=== PATIENT | female | born 1945 | race Caucasian/White ===

== ENCOUNTER → 2017-01-31 | Outpatient (REF) | payer MEDICARE ==
[2017-01-31 15:32] LABS: FOLATE 4.4 NG/ML; VITAMIN B12 LEVEL 362 PG/ML
== END ==
LOC: M LAB REF 12:22
PROVIDERS: ATTEND Nurse Practitioner Family
DX: R56.9 Unspecified convulsions (principal); R41.3 Other amnesia

== ENCOUNTER → 2017-03-31 | Outpatient (REF) | payer MEDICARE | LOC: M LAB REF 16:58 | PROVIDERS: ATTEND Nurse Practitioner Family | DX: N64.9 Disorder of breast, unspecified (principal); L03.818 Cellulitis of other sites ==

== ENCOUNTER 2018-03-24 06:29 | Emergency (ER) | payer MEDICARE ==
[2018-03-24] MEDS: NORCO, ANEXSIA 5/325MG TABLET (HYDROcodone/ACETAMINOPHEN) PO (07:49)
== END 2018-03-24 10:58 | disposition home or self-care (01) ==
LOC: M ED 06:29
DX: M17.12 Unilateral primary osteoarthritis, left knee (principal); M71.22 Synovial cyst of popliteal space [Baker], left knee; I10 Essential (primary) hypertension; R56.9 Unspecified convulsions; Z79.899 Other long term (current) drug therapy
CPT/HCPCS: 73564

== ENCOUNTER 2018-03-24 15:49 | Inpatient (IN) | payer MEDICARE ==
[2018-03-24] MEDS ORDERED: WARFARIN SOD 3 MG TAB PO (17:00)
[2018-03-24 17:33] LABS: HEMATOCRIT 42.5 % (36.0-47.0); HEMOGLOBIN 14.4 g/dl (12.0-15.5); MEAN CORPUSCULAR HEMOGLOBIN 28.6 pg (27.0-33.0); MEAN CORPUSCULAR HGB CONC 33.9 g/dl (32.0-36.5); MEAN CORPUSCULAR VOLUME 84.3 fl (80.0-96.0); PLATELET COUNT, AUTOMATED 274 10^3/uL (150-450); RED BLOOD COUNT 5.04 10^6/uL (4.00-5.40); WHITE BLOOD COUNT 13.8 10^3/uL (4.0-10.0)
[2018-03-24 18:30] LABS: ANION GAP 8 MEQ/L (8-16); BLOOD UREA NITROGEN 11 MG/DL (7-18); CALCIUM LEVEL 9.3 MG/DL (8.8-10.2); CARBON DIOXIDE LEVEL 28 MEQ/L (21-32); CHLORIDE LEVEL 103 MEQ/L (98-107); CREATININE FOR GFR 0.78 MG/DL (0.55-1.30); GLOMERULAR FILTRATION RATE > 60.0 (>39); GLUCOSE, FASTING 120 MG/DL (70-100); POTASSIUM SERUM 3.4 MEQ/L (3.5-5.1); SODIUM LEVEL 139 MEQ/L (136-145)
[2018-03-24 18:54] LABS: PHENYTOIN (DILANTIN) 14.1 UG/ML (10.0-20.0)
[2018-03-24] MEDS: PHENYTOIN ER 100 MG CAP PO (21:00)
[2018-03-24] MEDS: SIMVASTATIN 20 MG TAB PO (21:00)
[2018-03-24] MEDS: HEPARIN SOD (PORCINE) 5000 UNITS/ML VIAL SC (22:00)
[2018-03-25] MEDS: POTASSIUM CHLORIDE 10 MEQ SR TABLET PO ×2 (01:52→07:30)
[2018-03-25] MEDS: OLANZapine INTRAMUSCULAR 10 MG VIAL (S0166) IM (02:10)
[2018-03-25] MEDS: HEPARIN SOD (PORCINE) 5000 UNITS/ML VIAL SC ×3 (05:53→20:26)
[2018-03-25] MEDS: NORCO, ANEXSIA 5/325MG TABLET (HYDROcodone/ACETAMINOPHEN) PO (08:02)
[2018-03-25] MEDS: OCUVITE 1 TAB PO (11:15)
[2018-03-25] MEDS: PHENYTOIN ER 100 MG CAP PO ×2 (11:15→20:26)
[2018-03-25] MEDS: LISINOPRIL 40 MG TAB PO (11:15)
[2018-03-25] MEDS: CALCIUM/VITAMIN D 500 MG TAB PO (11:16)
[2018-03-25] MEDS: DONEPEZIL 5 MG TAB PO (11:16)
[2018-03-25] MEDS: hydroCHLOROthiazide 12.5 MG CAPSULE PO (11:16)
[2018-03-25] MEDS: VITAMIN D 1,000 INTERNATIONAL UNITS TABLET PO (11:16)
[2018-03-25] MEDS: ASPIRIN 81 MG ENTERIC TAB PO (11:18)
[2018-03-25] MEDS: traMADol 50 MG TAB PO (16:20)
[2018-03-25] MEDS: ACETAMINOPHEN 500 MG TAB PO (20:25)
[2018-03-25] MEDS: SIMVASTATIN 20 MG TAB PO (20:26)
[2018-03-26] MEDS: traMADol 50 MG TAB PO ×2 (05:01→13:02)
[2018-03-26] MEDS: HEPARIN SOD (PORCINE) 5000 UNITS/ML VIAL SC ×3 (05:02→20:26)
[2018-03-26 05:11] LABS: APPEARANCE, URINE CLOUDY (CLEAR); BACTERIA, URINE AUTO 1+ (NEGATIVE); BILIRUBIN, URINE AUTO NEGATIVE (NEGATIVE); BLOOD, URINE BLOOD NEGATIVE (NEGATIVE); COLOR, URINE AMBER (YELLOW); GLUCOSE, URINE (UA) AUTO NEGATIVE (NEGATIVE); KETONE, URINE AUTO NEGATIVE (NEGATIVE); LEUKOCYTE ESTERASE, URINE AUTO 3+ (NEGATIVE); MUCUS, URINE SMALL (NEGATIVE); NITRITE, URINE AUTO NEGATIVE (NEGATIVE); PROTEIN, URINE AUTO NEGATIVE (NEGATIVE); RBC, URINE AUTO 8 /HPF (0-3); SPECIFIC GRAVITY URINE AUTO 1.026 (1.002-1.035); SQUAMOUS EPITHELIAL CELL UR AU 11 /HPF (0-6); UROBILINOGEN, URINE AUTO 0.2 mg/dL (0.0-2.0); WBC, URINE AUTO 61 /HPF (0-3)
[2018-03-26 06:41] LABS: HEMATOCRIT 40.3 % (36.0-47.0); HEMOGLOBIN 13.2 g/dl (12.0-15.5); MEAN CORPUSCULAR HEMOGLOBIN 27.9 pg (27.0-33.0); MEAN CORPUSCULAR HGB CONC 32.8 g/dl (32.0-36.5); MEAN CORPUSCULAR VOLUME 85.2 fl (80.0-96.0); PLATELET COUNT, AUTOMATED 282 10^3/uL (150-450); RED BLOOD COUNT 4.73 10^6/uL (4.00-5.40); RED CELL DISTRIBUTION WIDTH 14.1 % (11.5-14.5); WHITE BLOOD COUNT 12.5 10^3/uL (4.0-10.0)
[2018-03-26 07:07] LABS: ANION GAP 7 MEQ/L (8-16); BLOOD UREA NITROGEN 15 MG/DL (7-18); CARBON DIOXIDE LEVEL 28 MEQ/L (21-32); CHLORIDE LEVEL 105 MEQ/L (98-107); CREATININE FOR GFR 0.72 MG/DL (0.55-1.30); GLOMERULAR FILTRATION RATE > 60.0 (>39); GLUCOSE, FASTING 125 MG/DL (70-100); SODIUM LEVEL 140 MEQ/L (136-145)
[2018-03-26] MEDS: PHENYTOIN ER 100 MG CAP PO ×2 (08:27→20:25)
[2018-03-26] MEDS: DONEPEZIL 5 MG TAB PO (08:27)
[2018-03-26] MEDS: hydroCHLOROthiazide 12.5 MG CAPSULE PO (08:27)
[2018-03-26] MEDS: CALCIUM/VITAMIN D 500 MG TAB PO (08:27)
[2018-03-26] MEDS: ASPIRIN 81 MG ENTERIC TAB PO (08:27)
[2018-03-26] MEDS: OCUVITE 1 TAB PO (08:27)
[2018-03-26] MEDS: VITAMIN D 1,000 INTERNATIONAL UNITS TABLET PO (08:27)
[2018-03-26] MEDS: ACETAMINOPHEN 500 MG TAB PO ×2 (08:28→20:25)
[2018-03-26] MEDS: LISINOPRIL 40 MG TAB PO (08:30)
[2018-03-26] MEDS: HALOPERIDOL 5 MG/ML VIAL (J1630) IV (13:40)
[2018-03-26] MEDS: QUEtiapine FUMARATE 12.5 MG HALF-TAB PO (20:25)
[2018-03-26] MEDS: SIMVASTATIN 20 MG TAB PO (20:25)
[2018-03-27] MEDS: traMADol 50 MG TAB PO (05:21)
[2018-03-27] MEDS: HEPARIN SOD (PORCINE) 5000 UNITS/ML VIAL SC ×3 (05:22→20:05)
[2018-03-27 06:03] LABS: HEMATOCRIT 38.9 % (36.0-47.0); MEAN CORPUSCULAR HEMOGLOBIN 28.3 pg (27.0-33.0); MEAN CORPUSCULAR HGB CONC 33.4 g/dl (32.0-36.5); MEAN CORPUSCULAR VOLUME 84.7 fl (80.0-96.0); PLATELET COUNT, AUTOMATED 300 10^3/uL (150-450); RED BLOOD COUNT 4.59 10^6/uL (4.00-5.40); RED CELL DISTRIBUTION WIDTH 13.8 % (11.5-14.5)
[2018-03-27 06:27] LABS: ANION GAP 9 MEQ/L (8-16); BLOOD UREA NITROGEN 19 MG/DL (7-18); CALCIUM LEVEL 8.8 MG/DL (8.8-10.2); CARBON DIOXIDE LEVEL 26 MEQ/L (21-32); CHLORIDE LEVEL 105 MEQ/L (98-107); CREATININE FOR GFR 0.68 MG/DL (0.55-1.30); GLOMERULAR FILTRATION RATE > 60.0 (>39); GLUCOSE, FASTING 92 MG/DL (70-100); POTASSIUM SERUM 3.6 MEQ/L (3.5-5.1); SODIUM LEVEL 140 MEQ/L (136-145)
[2018-03-27] MEDS: DONEPEZIL 5 MG TAB PO (08:31)
[2018-03-27] MEDS: hydroCHLOROthiazide 12.5 MG CAPSULE PO (08:31)
[2018-03-27] MEDS: OCUVITE 1 TAB PO (08:32)
[2018-03-27] MEDS: VITAMIN D 1,000 INTERNATIONAL UNITS TABLET PO (08:32)
[2018-03-27] MEDS: ASPIRIN 81 MG ENTERIC TAB PO (08:32)
[2018-03-27] MEDS: LISINOPRIL 40 MG TAB PO (08:32)
[2018-03-27] MEDS: PHENYTOIN ER 100 MG CAP PO ×2 (08:32→20:05)
[2018-03-27] MEDS: CALCIUM/VITAMIN D 500 MG TAB PO (08:32)
[2018-03-27] MEDS: QUEtiapine FUMARATE 12.5 MG HALF-TAB PO ×2 (08:32→20:05)
[2018-03-27] MEDS: SIMVASTATIN 20 MG TAB PO (20:04)
[2018-03-28] MEDS: HEPARIN SOD (PORCINE) 5000 UNITS/ML VIAL SC ×3 (05:26→20:18)
[2018-03-28 06:22] LABS: HEMATOCRIT 39.5 % (36.0-47.0); HEMOGLOBIN 13.3 g/dl (12.0-15.5); MEAN CORPUSCULAR HEMOGLOBIN 28.4 pg (27.0-33.0); MEAN CORPUSCULAR HGB CONC 33.7 g/dl (32.0-36.5); MEAN CORPUSCULAR VOLUME 84.4 fl (80.0-96.0); PLATELET COUNT, AUTOMATED 352 10^3/uL (150-450); RED BLOOD COUNT 4.68 10^6/uL (4.00-5.40); RED CELL DISTRIBUTION WIDTH 13.5 % (11.5-14.5); WHITE BLOOD COUNT 11.4 10^3/uL (4.0-10.0)
[2018-03-28 06:42] LABS: ANION GAP 7 MEQ/L (8-16); BLOOD UREA NITROGEN 18 MG/DL (7-18); CALCIUM LEVEL 9.2 MG/DL (8.8-10.2); CARBON DIOXIDE LEVEL 27 MEQ/L (21-32); CHLORIDE LEVEL 102 MEQ/L (98-107); GLOMERULAR FILTRATION RATE > 60.0 (>39); GLUCOSE, FASTING 105 MG/DL (70-100); POTASSIUM SERUM 3.4 MEQ/L (3.5-5.1); SODIUM LEVEL 136 MEQ/L (136-145)
[2018-03-28] MEDS: LISINOPRIL 40 MG TAB PO (08:24)
[2018-03-28] MEDS: OCUVITE 1 TAB PO (08:25)
[2018-03-28] MEDS: VITAMIN D 1,000 INTERNATIONAL UNITS TABLET PO (08:25)
[2018-03-28] MEDS: QUEtiapine FUMARATE 12.5 MG HALF-TAB PO ×2 (08:25→20:18)
[2018-03-28] MEDS: ASPIRIN 81 MG ENTERIC TAB PO (08:25)
[2018-03-28] MEDS: DONEPEZIL 5 MG TAB PO (08:25)
[2018-03-28] MEDS: PHENYTOIN ER 100 MG CAP PO ×2 (08:25→20:19)
[2018-03-28] MEDS: hydroCHLOROthiazide 12.5 MG CAPSULE PO (08:25)
[2018-03-28] MEDS: CALCIUM/VITAMIN D 500 MG TAB PO (08:25)
[2018-03-28] MEDS: POTASSIUM CHLORIDE 10 MEQ SR TABLET PO (08:55)
[2018-03-28] MEDS: ACETAMINOPHEN 500 MG TAB PO (12:43)
[2018-03-28] MEDS: traMADol 50 MG TAB PO (20:18)
[2018-03-28] MEDS: SIMVASTATIN 20 MG TAB PO (20:18)
[2018-03-29] MEDS: HEPARIN SOD (PORCINE) 5000 UNITS/ML VIAL SC ×3 (05:45→21:02)
[2018-03-29] MEDS: PHENYTOIN ER 100 MG CAP PO ×2 (08:57→21:04)
[2018-03-29] MEDS: OCUVITE 1 TAB PO (08:57)
[2018-03-29] MEDS: QUEtiapine FUMARATE 12.5 MG HALF-TAB PO ×2 (08:57→21:03)
[2018-03-29] MEDS: VITAMIN D 1,000 INTERNATIONAL UNITS TABLET PO (08:58)
[2018-03-29] MEDS: ASPIRIN 81 MG ENTERIC TAB PO (08:58)
[2018-03-29] MEDS: CALCIUM/VITAMIN D 500 MG TAB PO (08:58)
[2018-03-29] MEDS: LISINOPRIL 40 MG TAB PO (08:58)
[2018-03-29] MEDS: SENOKOT S TAB PO ×2 (08:58→21:03)
[2018-03-29] MEDS: hydroCHLOROthiazide 12.5 MG CAPSULE PO (08:58)
[2018-03-29] MEDS: DONEPEZIL 5 MG TAB PO (08:58)
[2018-03-29] MEDS: ACETAMINOPHEN 500 MG TAB PO (08:59)
[2018-03-29] MEDS: SIMVASTATIN 20 MG TAB PO (21:03)
[2018-03-29] MEDS: traMADol 50 MG TAB PO (21:03)
[2018-03-30] MEDS: HEPARIN SOD (PORCINE) 5000 UNITS/ML VIAL SC ×3 (06:32→21:17)
[2018-03-30] MEDS: CALCIUM/VITAMIN D 500 MG TAB PO (08:55)
[2018-03-30] MEDS: hydroCHLOROthiazide 12.5 MG CAPSULE PO (08:55)
[2018-03-30] MEDS: QUEtiapine FUMARATE 12.5 MG HALF-TAB PO ×2 (08:56→21:16)
[2018-03-30] MEDS: VITAMIN D 1,000 INTERNATIONAL UNITS TABLET PO (08:56)
[2018-03-30] MEDS: ASPIRIN 81 MG ENTERIC TAB PO (08:56)
[2018-03-30] MEDS: ACETAMINOPHEN 500 MG TAB PO (08:57)
[2018-03-30] MEDS: LISINOPRIL 40 MG TAB PO (08:57)
[2018-03-30] MEDS: PHENYTOIN ER 100 MG CAP PO ×2 (08:57→21:16)
[2018-03-30] MEDS: DONEPEZIL 5 MG TAB PO (08:57)
[2018-03-30] MEDS: OCUVITE 1 TAB PO (08:57)
[2018-03-30] MEDS: SENOKOT S TAB PO ×2 (08:57→21:16)
[2018-03-30] MEDS: SIMVASTATIN 20 MG TAB PO (21:16)
[2018-03-31] MEDS: HEPARIN SOD (PORCINE) 5000 UNITS/ML VIAL SC (06:00)
[2018-03-31] MEDS: QUEtiapine FUMARATE 12.5 MG HALF-TAB PO (08:22)
[2018-03-31] MEDS: OCUVITE 1 TAB PO (08:22)
[2018-03-31] MEDS: PHENYTOIN ER 100 MG CAP PO (08:23)
[2018-03-31] MEDS: hydroCHLOROthiazide 12.5 MG CAPSULE PO (08:23)
[2018-03-31] MEDS: SENOKOT S TAB PO (08:23)
[2018-03-31] MEDS: ASPIRIN 81 MG ENTERIC TAB PO (08:23)
[2018-03-31] MEDS: DONEPEZIL 5 MG TAB PO (08:23)
[2018-03-31] MEDS: CALCIUM/VITAMIN D 500 MG TAB PO (08:23)
[2018-03-31] MEDS: LISINOPRIL 40 MG TAB PO (08:23)
[2018-03-31] MEDS: VITAMIN D 1,000 INTERNATIONAL UNITS TABLET PO (08:23)
== END 2018-03-31 12:05 | DRG 556 ==
LOC: M ED INP 03-25 00:40 → M MS5PR 03-26 16:41 → M ED 15:49 → M MS5PR 03-25 17:52
DX: M25.561 Pain in right knee (principal); F03.90 Unspecified dementia, unspecified severity, without behavioral disturbance, psychotic disturbance, mood disturbance, and anxiety; I10 Essential (primary) hypertension; M17.12 Unilateral primary osteoarthritis, left knee; M71.22 Synovial cyst of popliteal space [Baker], left knee; G40.909 Epilepsy, unspecified, not intractable, without status epilepticus; Z79.82 Long term (current) use of aspirin; Z79.899 Other long term (current) drug therapy; Z91.81 History of falling

== ENCOUNTER → 2018-04-01 | Outpatient (REF) ==
[2018-04-01 08:19] LABS: HEMATOCRIT 38.2 % (36.0-47.0); HEMOGLOBIN 12.8 g/dl (12.0-15.5); MEAN CORPUSCULAR HEMOGLOBIN 28.3 pg (27.0-33.0); MEAN CORPUSCULAR HGB CONC 33.5 g/dl (32.0-36.5); MEAN CORPUSCULAR VOLUME 84.3 fl (80.0-96.0); PLATELET COUNT, AUTOMATED 413 10^3/uL (150-450); RED BLOOD COUNT 4.53 10^6/uL (4.00-5.40); RED CELL DISTRIBUTION WIDTH 13.3 % (11.5-14.5); WHITE BLOOD COUNT 12.5 10^3/uL (4.0-10.0)
[2018-04-01 08:53] LABS: ANION GAP 10 MEQ/L (8-16); BLOOD UREA NITROGEN 21 MG/DL (7-18); CALCIUM LEVEL 10.1 MG/DL (8.8-10.2); CARBON DIOXIDE LEVEL 25 MEQ/L (21-32); CHLORIDE LEVEL 100 MEQ/L (98-107); CHOLESTEROL LEVEL 194 MG/DL (<200); CREATININE FOR GFR 0.86 MG/DL (0.55-1.30); GLOMERULAR FILTRATION RATE > 60.0 (>39); GLUCOSE, FASTING 114 MG/DL (70-100); HDL CHOLESTEROL 52 MG/DL (>40); LDL CHOLESTEROL 123.2 MG/DL (<100); NON-HDL-C 142 MG/DL; POTASSIUM SERUM 3.9 MEQ/L (3.5-5.1); SODIUM LEVEL 135 MEQ/L (136-145); TRIGLYCERIDES LEVEL 94 MG/DL (<150)
== END ==
LOC: SKLAB5 10:23
DX: E87.6 Hypokalemia (principal); I10 Essential (primary) hypertension

== ENCOUNTER → 2018-05-26 | Outpatient (REF) | payer MEDICARE ==
[2018-05-26 08:37] LABS: ANION GAP 10 MEQ/L (8-16); BLOOD UREA NITROGEN 20 MG/DL (7-18); CALCIUM LEVEL 8.6 MG/DL (8.8-10.2); CARBON DIOXIDE LEVEL 25 MEQ/L (21-32); CHLORIDE LEVEL 103 MEQ/L (98-107); CREATININE FOR GFR 0.62 MG/DL (0.55-1.30); GLOMERULAR FILTRATION RATE > 60.0 (>39); GLUCOSE, FASTING 84 MG/DL (70-100); NT-PRO BNP 118 PG/ML (<125); SODIUM LEVEL 138 MEQ/L (136-145)
== END ==
LOC: SKLAB5 07:38
DX: R60.9 Edema, unspecified (principal)
CPT/HCPCS: 36415

== ENCOUNTER → 2018-06-17 | Outpatient (CLI) | payer MEDICAID, MEDICARE ==
[2018-06-17 20:14] LABS: APPEARANCE, URINE CLOUDY (CLEAR); BACTERIA, URINE AUTO 1+ (NEGATIVE); BILIRUBIN, URINE AUTO NEGATIVE (NEGATIVE); BLOOD, URINE BLOOD NEGATIVE (NEGATIVE); COLOR, URINE YELLOW (YELLOW); GLUCOSE, URINE (UA) AUTO NEGATIVE (NEGATIVE); KETONE, URINE AUTO NEGATIVE (NEGATIVE); LEUKOCYTE ESTERASE, URINE AUTO 3+ (NEGATIVE); NITRITE, URINE AUTO NEGATIVE (NEGATIVE); PROTEIN, URINE AUTO NEGATIVE (NEGATIVE); RBC, URINE AUTO 4 /HPF (0-3); SPECIFIC GRAVITY URINE AUTO 1.015 (1.002-1.035); SQUAMOUS EPITHELIAL CELL UR AU 4 /HPF (0-6); UROBILINOGEN, URINE AUTO 0.2 mg/dL (0.0-2.0); WBC, URINE AUTO TNTC /HPF (0-3)
== END ==
LOC: M LAB 19:48
DX: R35.0 Frequency of micturition (principal)
CPT/HCPCS: 81001

== ENCOUNTER → 2018-07-09 | Outpatient (REF) | payer MEDICAID, MEDICARE ==
[2018-07-09 14:06] LABS: ESTIMATED AVERAGE GLUCOSE 131 MG/DL (60-110); HEMOGLOBIN A1c 6.2 %
== END ==
LOC: SKLAB5 08:00
DX: E11.9 Type 2 diabetes mellitus without complications (principal)
CPT/HCPCS: 83036

== ENCOUNTER → 2018-09-03 | Outpatient (REF) | payer MEDICAID, MEDICARE ==
[2018-09-03 09:50] LABS: PHENYTOIN (DILANTIN) 8.2 UG/ML (10.0-20.0)
== END ==
LOC: SKLAB5 08:12
DX: R56.9 Unspecified convulsions (principal)
CPT/HCPCS: 80185

== ENCOUNTER → 2018-09-29 | Outpatient (REF) | payer MEDICARE, MEDICAID ==
[2018-09-29 08:23] LABS: PHENYTOIN (DILANTIN) 10.3 UG/ML (10.0-20.0)
== END ==
LOC: SKLAB5 10:05
DX: R56.9 Unspecified convulsions (principal)
CPT/HCPCS: 80185

== ENCOUNTER → 2018-10-05 | Outpatient (REF) | payer MEDICARE, MEDICAID ==
[2018-10-05 08:35] LABS: HEMATOCRIT 38.4 % (36.0-47.0); HEMOGLOBIN 12.2 g/dl (12.0-15.5); MEAN CORPUSCULAR HEMOGLOBIN 27.9 pg (27.0-33.0); MEAN CORPUSCULAR HGB CONC 31.8 g/dl (32.0-36.5); MEAN CORPUSCULAR VOLUME 87.7 fl (80.0-96.0); PLATELET COUNT, AUTOMATED 263 10^3/uL (150-450); RED BLOOD COUNT 4.38 10^6/uL (4.00-5.40); RED CELL DISTRIBUTION WIDTH 13.7 % (11.5-14.5); WHITE BLOOD COUNT 8.2 10^3/uL (4.0-10.0)
[2018-10-05 08:58] LABS: ALBUMIN 3.1 GM/DL (3.2-5.2); ALBUMIN/GLOBULIN RATIO 0.89 (1.00-1.93); ALKALINE PHOSPHATASE 117 U/L (45-117); ALT/SGPT 25 U/L (12-78); ANION GAP 8 MEQ/L (8-16); AST/SGOT 16 U/L (7-37); BILIRUBIN,TOTAL 0.3 MG/DL (0.2-1.0); BLOOD UREA NITROGEN 17 MG/DL (7-18); CALCIUM LEVEL 9.2 MG/DL (8.8-10.2); CARBON DIOXIDE LEVEL 27 MEQ/L (21-32); CHLORIDE LEVEL 105 MEQ/L (98-107); CREATININE FOR GFR 0.62 MG/DL (0.55-1.30); GLOMERULAR FILTRATION RATE > 60.0 (>39); GLUCOSE, FASTING 88 MG/DL (70-100); PHENYTOIN (DILANTIN) 9.7 UG/ML (10.0-20.0); POTASSIUM SERUM 3.8 MEQ/L (3.5-5.1); SODIUM LEVEL 140 MEQ/L (136-145); TOTAL PROTEIN 6.6 GM/DL (6.4-8.2)
== END ==
LOC: SKLAB5 08:30
DX: F03.90 Unspecified dementia, unspecified severity, without behavioral disturbance, psychotic disturbance, mood disturbance, and anxiety (principal); R56.9 Unspecified convulsions
CPT/HCPCS: 80185

== ENCOUNTER → 2018-11-06 | Outpatient (REF) | payer MEDICARE, MEDICAID | LOC: SKLAB5 11:15 | DX: R25.2 Cramp and spasm (principal); Z53.9 Procedure and treatment not carried out, unspecified reason ==

== ENCOUNTER → 2018-11-09 | Outpatient (REF) | payer MEDICARE, MEDICAID ==
[2018-11-09 08:48] LABS: ANION GAP 6 MEQ/L (8-16); BLOOD UREA NITROGEN 20 MG/DL (7-18); CALCIUM LEVEL 8.9 MG/DL (8.8-10.2); CARBON DIOXIDE LEVEL 29 MEQ/L (21-32); CHLORIDE LEVEL 106 MEQ/L (98-107); CREATININE FOR GFR 0.65 MG/DL (0.55-1.30); GLOMERULAR FILTRATION RATE > 60.0 (>39); GLUCOSE, FASTING 90 MG/DL (70-100); POTASSIUM SERUM 3.5 MEQ/L (3.5-5.1); SODIUM LEVEL 141 MEQ/L (136-145)
== END ==
LOC: SKLAB5 07:04
DX: R25.2 Cramp and spasm (principal)
CPT/HCPCS: 80048

== ENCOUNTER → 2019-01-08 | Outpatient (REF) | payer MEDICARE, MEDICAID ==
[~2019-01-08] MED LIST: ASPI1TAB PO; CALC600T57 PO; CENTTAB36 PO; DONE5TAB64 PO; HYDR25TAB PO; LISI40TA PO; NORC1TAB4 PO; NORCOTAB PO; PHEN100C PO; QUET1TAB7 PO; ROLLMIS2 XX; SIMV20TA2 PO; TRAM50TA2 PO; VITA-122 PO
[2019-01-08 08:09] LABS: BLOOD UREA NITROGEN 23 MG/DL (7-18); CALCIUM LEVEL 9.2 MG/DL (8.8-10.2); CARBON DIOXIDE LEVEL 31 MEQ/L (21-32); CHLORIDE LEVEL 105 MEQ/L (98-107); CREATININE FOR GFR 0.68 MG/DL (0.55-1.30); GLOMERULAR FILTRATION RATE > 60.0 (>39); GLUCOSE, FASTING 90 MG/DL (70-100); POTASSIUM SERUM 4.1 MEQ/L (3.5-5.1); SODIUM LEVEL 141 MEQ/L (136-145)
== END ==
LOC: SKLAB5 12:40
DX: R60.9 Edema, unspecified (principal)

== ENCOUNTER → 2019-03-04 | Outpatient (REF) | payer MEDICARE, MEDICAID ==
[~2019-03-04] MED LIST changes: +HYDR-3715 PO; -NORCOTAB PO
== END ==
LOC: SKLAB5 08:00
DX: R56.9 Unspecified convulsions (principal)

== ENCOUNTER → 2019-04-01 | Outpatient (REF) | payer MEDICARE, MEDICAID ==
[~2019-04-01] MED LIST changes: -ASPI1TAB PO; +ASPI81TA26 PO; -NORC1TAB4 PO; +NORC1TAB7 PO
[2019-04-01 07:52] LABS: HEMATOCRIT 37.5 % (36.0-47.0); HEMOGLOBIN 11.8 g/dl (12.0-15.5); MEAN CORPUSCULAR HEMOGLOBIN 26.8 pg (27.0-33.0); MEAN CORPUSCULAR HGB CONC 31.5 g/dl (32.0-36.5); MEAN CORPUSCULAR VOLUME 85.2 fl (80.0-96.0); PLATELET COUNT, AUTOMATED 308 10^3/uL (150-450); WHITE BLOOD COUNT 8.5 10^3/uL (4.0-10.0)
[2019-04-01 08:23] LABS: ALBUMIN 2.9 GM/DL (3.2-5.2); ALT/SGPT 20 U/L (12-78); BILIRUBIN,TOTAL 0.3 MG/DL (0.2-1.0); BLOOD UREA NITROGEN 24 MG/DL (7-18); CARBON DIOXIDE LEVEL 30 MEQ/L (21-32); CHLORIDE LEVEL 105 MEQ/L (98-107); CHOLESTEROL LEVEL 177 MG/DL (<200); CHOLESTEROL RISK RATIO 2.854 (<5); CREATININE FOR GFR 0.61 MG/DL (0.55-1.30); GLOMERULAR FILTRATION RATE > 60.0 (>39); GLUCOSE, FASTING 84 MG/DL (70-100); HDL CHOLESTEROL 62 MG/DL (>40); LDL CHOLESTEROL 104 MG/DL (<100); NON-HDL-C 115 MG/DL; PHENYTOIN (DILANTIN) 7.5 UG/ML (10.0-20.0); POTASSIUM SERUM 4.3 MEQ/L (3.5-5.1); SODIUM LEVEL 139 MEQ/L (136-145); TOTAL PROTEIN 6.8 GM/DL (6.4-8.2); TRIGLYCERIDES LEVEL 57 MG/DL (<150)
== END ==
LOC: SKLAB5 08:20
DX: E78.5 Hyperlipidemia, unspecified (principal); I10 Essential (primary) hypertension; R56.9 Unspecified convulsions

== ENCOUNTER → 2019-05-03 | Outpatient (REF) | payer MEDICARE, MEDICAID ==
[2019-05-03 14:23] LABS: BLOOD UREA NITROGEN 37 MG/DL (7-18); CALCIUM LEVEL 9.8 MG/DL (8.8-10.2); CARBON DIOXIDE LEVEL 30 MEQ/L (21-32); CHLORIDE LEVEL 102 MEQ/L (98-107); CREATININE FOR GFR 0.87 MG/DL (0.55-1.30); GLOMERULAR FILTRATION RATE > 60.0 (>39); GLUCOSE, FASTING 124 MG/DL (70-100); POTASSIUM SERUM 3.8 MEQ/L (3.5-5.1); SODIUM LEVEL 140 MEQ/L (136-145)
== END ==
LOC: SKLAB5 13:06
DX: F03.90 Unspecified dementia, unspecified severity, without behavioral disturbance, psychotic disturbance, mood disturbance, and anxiety (principal); I10 Essential (primary) hypertension

== ENCOUNTER → 2019-05-05 | Outpatient (REF) | payer MEDICARE, MEDICAID | LOC: SKLAB5 11:28 | DX: R60.0 Localized edema (principal); R53.83 Other fatigue ==

== ENCOUNTER → 2019-05-05 | Outpatient (CLI) | payer MEDICARE, MEDICAID ==
--- NOTE | 2019-05-05 13:09 | REP ---
Left lower extremity Duplex Doppler venous ultrasound: Real time compression and duplex Doppler interrogation of the left lower extremity deep venous system is performed. The left common femoral, superficial femoral and popliteal veins are fully compressible with transducer pressure and demonstrate normal spontaneous and phasic flow, without evidence of deep venous thrombosis. Impression: No evidence of deep venous thrombosis of the left lower extremity femoral popliteal venous system. Electronically Signed by Luis Alberto Colbert MD 05/05/2019 01:00 P
== END ==
LOC: M RAD 12:01
PROVIDERS: ATTEND Nurse Practitioner Family
DX: M79.662 Pain in left lower leg (principal); R60.0 Localized edema; R53.83 Other fatigue

== ENCOUNTER → 2019-06-28 | Outpatient (REF) | payer MEDICARE ==
[2019-06-28 11:18] LABS: BLOOD UREA NITROGEN 25 MG/DL (7-18); CALCIUM LEVEL 9.1 MG/DL (8.8-10.2); CARBON DIOXIDE LEVEL 29 MEQ/L (21-32); CHLORIDE LEVEL 108 MEQ/L (98-107); CREATININE FOR GFR 0.69 MG/DL (0.55-1.30); GLOMERULAR FILTRATION RATE > 60.0 (>39); GLUCOSE, FASTING 114 MG/DL (70-100); POTASSIUM SERUM 4.2 MEQ/L (3.5-5.1); SODIUM LEVEL 143 MEQ/L (136-145)
== END ==
LOC: SKLAB5 10:00
DX: I50.9 Heart failure, unspecified (principal); E87.6 Hypokalemia

== ENCOUNTER → 2019-07-01 | Outpatient (REF) | payer MEDICARE ==
[2019-07-01 08:21] LABS: BLOOD UREA NITROGEN 23 MG/DL (7-18); CALCIUM LEVEL 9.1 MG/DL (8.8-10.2); CARBON DIOXIDE LEVEL 32 MEQ/L (21-32); CHLORIDE LEVEL 107 MEQ/L (98-107); CREATININE FOR GFR 0.67 MG/DL (0.55-1.30); GLOMERULAR FILTRATION RATE > 60.0 (>39); GLUCOSE, FASTING 82 MG/DL (70-100); POTASSIUM SERUM 4.2 MEQ/L (3.5-5.1); SODIUM LEVEL 143 MEQ/L (136-145)
== END ==
LOC: SKLAB5 07:36
DX: I50.9 Heart failure, unspecified (principal)

== ENCOUNTER → 2019-07-03 | Outpatient (REF) | payer MEDICARE | LOC: SKLAB5 14:05 | DX: Z12.11 Encounter for screening for malignant neoplasm of colon (principal); R19.5 Other fecal abnormalities ==

== ENCOUNTER → 2019-07-08 | Outpatient (REF) | payer MEDICARE ==
[2019-07-08 08:40] LABS: BLOOD UREA NITROGEN 28 MG/DL (7-18); CALCIUM LEVEL 9.1 MG/DL (8.8-10.2); CARBON DIOXIDE LEVEL 25 MEQ/L (21-32); CHLORIDE LEVEL 110 MEQ/L (98-107); CREATININE FOR GFR 0.56 MG/DL (0.55-1.30); GLOMERULAR FILTRATION RATE > 60.0 (>39); GLUCOSE, FASTING 82 MG/DL (70-100); POTASSIUM SERUM 4.4 MEQ/L (3.5-5.1); SODIUM LEVEL 142 MEQ/L (136-145)
== END ==
LOC: SKLAB5 08:16
DX: R60.9 Edema, unspecified (principal)

== ENCOUNTER → 2019-07-26 | Outpatient (REF) | payer MEDICARE ==
[~2019-07-26] MED LIST changes: -SIMV20TA2 PO; +SIMV20TA22 PO
--- NOTE | 2019-07-26 18:05 | REP ---
LEFT FOOT, FOUR VIEWS: Four views of the left foot are performed. There is no acute fracture or dislocation. There is moderate inferior calcaneal spurring. There is mild narrowing of the 1st metatarsal phalangeal joint. IMPRESSION :Mild degenerative changes without evidence of fracture. Diffuse soft tissue swelling. Electronically Signed by Luis Alberto Colbert MD 07/27/2019 11:39 P
--- NOTE | 2019-07-26 18:48 | REP ---
LEFT ANKLE, FOUR VIEWS: Four views of the left ankle are performed. There is no acute fracture or dislocation. There is slight narrowing of the tibiotalar joint. There is moderate inferior calcaneal spurring. IMPRESSION: Diffuse soft tissue swelling without fracture or dislocation. Mild degenerative changes. Electronically Signed by Luis Alberto Colbert MD 07/27/2019 11:40 P
== END ==
LOC: SKLAB5 11:13
DX: M19.072 Primary osteoarthritis, left ankle and foot (principal); R22.42 Localized swelling, mass and lump, left lower limb

== ENCOUNTER → 2019-07-29 | Outpatient (REF) | payer MEDICARE ==
[~2019-07-29] MED LIST changes: +SIMV20TA2 PO; -SIMV20TA22 PO
[2019-07-29 12:54] LABS: BLOOD UREA NITROGEN 43 MG/DL (7-18); CALCIUM LEVEL 9.3 MG/DL (8.8-10.2); CARBON DIOXIDE LEVEL 30 MEQ/L (21-32); CHLORIDE LEVEL 102 MEQ/L (98-107); CREATININE FOR GFR 0.76 MG/DL (0.55-1.30); GLOMERULAR FILTRATION RATE > 60.0 (>39); GLUCOSE, FASTING 126 MG/DL (70-100); MAGNESIUM LEVEL 2.4 MG/DL (1.8-2.4); POTASSIUM SERUM 4.3 MEQ/L (3.5-5.1); SODIUM LEVEL 140 MEQ/L (136-145)
== END ==
LOC: SKLAB5 10:58
DX: I10 Essential (primary) hypertension (principal); R25.2 Cramp and spasm

== ENCOUNTER → 2019-09-02 | Outpatient (REF) | payer MEDICARE ==
[~2019-09-02] MED LIST changes: -SIMV20TA2 PO; +SIMV20TA22 PO
== END ==
LOC: SKLAB5 08:25
DX: R56.9 Unspecified convulsions (principal)

== ENCOUNTER → 2019-09-16 | Outpatient (REF) | payer MEDICARE ==
[~2019-09-16] MED LIST changes: +SIMV20TA2 PO; -SIMV20TA22 PO
== END ==
LOC: SKLAB5 07:38
DX: R56.9 Unspecified convulsions (principal); Z51.81 Encounter for therapeutic drug level monitoring; Z79.899 Other long term (current) drug therapy

== ENCOUNTER → 2019-09-23 | Outpatient (REF) | payer MEDICARE | LOC: SKLAB5 08:32 | PROVIDERS: ATTEND Family Medicine | DX: R56.9 Unspecified convulsions (principal) ==

== ENCOUNTER → 2019-10-07 | Outpatient (REF) | payer MEDICARE ==
[2019-10-07 09:10] LABS: HEMATOCRIT 41.1 % (36.0-47.0); HEMOGLOBIN 12.9 g/dl (12.0-15.5); MEAN CORPUSCULAR HEMOGLOBIN 27.6 pg (27.0-33.0); MEAN CORPUSCULAR HGB CONC 31.4 g/dl (32.0-36.5); PLATELET COUNT, AUTOMATED 287 10^3/uL (150-450); RED BLOOD COUNT 4.67 10^6/uL (4.00-5.40); WHITE BLOOD COUNT 8.2 10^3/uL (4.0-10.0)
[2019-10-07 09:30] LABS: ALT/SGPT 17 U/L (12-78); BILIRUBIN,TOTAL 0.3 MG/DL (0.2-1.0); BLOOD UREA NITROGEN 28 MG/DL (7-18); CALCIUM LEVEL 9.9 MG/DL (8.8-10.2); CARBON DIOXIDE LEVEL 31 MEQ/L (21-32); CHLORIDE LEVEL 105 MEQ/L (98-107); CREATININE FOR GFR 0.64 MG/DL (0.55-1.30); GLOMERULAR FILTRATION RATE > 60.0 (>39); GLUCOSE, FASTING 82 MG/DL (70-100); POTASSIUM SERUM 4.1 MEQ/L (3.5-5.1); SODIUM LEVEL 139 MEQ/L (136-145); TOTAL PROTEIN 7.6 GM/DL (6.4-8.2)
== END ==
LOC: SKLAB5 07:47
PROVIDERS: ATTEND Family Medicine
DX: F03.90 Unspecified dementia, unspecified severity, without behavioral disturbance, psychotic disturbance, mood disturbance, and anxiety (principal)

== ENCOUNTER → 2019-11-23 | Outpatient (REF) | payer MEDICARE ==
[~2019-11-23] MED LIST changes: -SIMV20TA2 PO; +SIMV20TA22 PO
== END ==
LOC: SKLAB7 13:15
PROVIDERS: ATTEND Family Medicine
DX: E87.6 Hypokalemia (principal)

== ENCOUNTER → 2019-11-23 | Outpatient (REF) | payer MEDICARE ==
[2019-11-23 03:41] LABS: HEMATOCRIT 34.1 % (36.0-47.0); HEMOGLOBIN 10.9 g/dl (12.0-15.5); MEAN CORPUSCULAR HEMOGLOBIN 27.5 pg (27.0-33.0); MEAN CORPUSCULAR VOLUME 86.1 fl (80.0-96.0); PLATELET COUNT, AUTOMATED 274 10^3/uL (150-450); RED BLOOD COUNT 3.96 10^6/uL (4.00-5.40)
[2019-11-23 04:03] LABS: ALBUMIN 2.4 GM/DL (3.2-5.2); ALT/SGPT 118 U/L (12-78); BILIRUBIN,TOTAL 0.7 MG/DL (0.2-1.0); BLOOD UREA NITROGEN 18 MG/DL (7-18); CALCIUM LEVEL 8.8 MG/DL (8.8-10.2); CARBON DIOXIDE LEVEL 27 MEQ/L (21-32); CHLORIDE LEVEL 104 MEQ/L (98-107); GLOMERULAR FILTRATION RATE > 60.0 (>39); GLUCOSE, FASTING 169 MG/DL (70-100); POTASSIUM SERUM 3.3 MEQ/L (3.5-5.1); SODIUM LEVEL 139 MEQ/L (136-145); TOTAL PROTEIN 6.5 GM/DL (6.4-8.2)
[2019-11-23 11:58] LABS: AMYLASE 38 U/L (25-115); LIPASE 348 U/L (73-393)
== END ==
LOC: SKLAB7 02:54
PROVIDERS: ATTEND Family Medicine
DX: R50.9 Fever, unspecified (principal); Z79.899 Other long term (current) drug therapy

== ENCOUNTER → 2019-11-25 | Outpatient (REF) | payer MEDICARE ==
[2019-11-25 09:35] LABS: HEMATOCRIT 34.4 % (36.0-47.0); HEMOGLOBIN 11.1 g/dl (12.0-15.5); MEAN CORPUSCULAR HEMOGLOBIN 28.2 pg (27.0-33.0); MEAN CORPUSCULAR HGB CONC 32.3 g/dl (32.0-36.5); MEAN CORPUSCULAR VOLUME 87.5 fl (80.0-96.0); PLATELET COUNT, AUTOMATED 351 10^3/uL (150-450); RED BLOOD COUNT 3.93 10^6/uL (4.00-5.40)
[2019-11-25 09:43] LABS: ALBUMIN 2.1 GM/DL (3.2-5.2); ALT/SGPT 58 U/L (12-78); BILIRUBIN,TOTAL 0.4 MG/DL (0.2-1.0); BLOOD UREA NITROGEN 18 MG/DL (7-18); CALCIUM LEVEL 8.8 MG/DL (8.8-10.2); CARBON DIOXIDE LEVEL 29 MEQ/L (21-32); CHLORIDE LEVEL 103 MEQ/L (98-107); CREATININE FOR GFR 0.75 MG/DL (0.55-1.30); GLOMERULAR FILTRATION RATE > 60.0 (>39); GLUCOSE, FASTING 146 MG/DL (70-100); POTASSIUM SERUM 3.5 MEQ/L (3.5-5.1); SODIUM LEVEL 141 MEQ/L (136-145); TOTAL PROTEIN 6.2 GM/DL (6.4-8.2)
== END ==
LOC: SKLAB7 03:43
PROVIDERS: ATTEND Family Medicine
DX: L03.90 Cellulitis, unspecified (principal); Z79.82 Long term (current) use of aspirin; Z79.899 Other long term (current) drug therapy

== ENCOUNTER → 2019-11-30 | Outpatient (REF) | payer MEDICARE ==
[2019-11-30 07:28] LABS: HEMATOCRIT 32.7 % (36.0-47.0); HEMOGLOBIN 10.8 g/dl (12.0-15.5); MEAN CORPUSCULAR HEMOGLOBIN 28.3 pg (27.0-33.0); MEAN CORPUSCULAR VOLUME 85.8 fl (80.0-96.0); PLATELET COUNT, AUTOMATED 503 10^3/uL (150-450); RED BLOOD COUNT 3.81 10^6/uL (4.00-5.40); WHITE BLOOD COUNT 8.8 10^3/uL (4.0-10.0)
[2019-11-30 07:46] LABS: BLOOD UREA NITROGEN 18 MG/DL (7-18); CALCIUM LEVEL 8.8 MG/DL (8.8-10.2); CARBON DIOXIDE LEVEL 27 MEQ/L (21-32); CHLORIDE LEVEL 104 MEQ/L (98-107); GLOMERULAR FILTRATION RATE > 60.0 (>39); GLUCOSE, FASTING 102 MG/DL (70-100); POTASSIUM SERUM 3.8 MEQ/L (3.5-5.1); SODIUM LEVEL 139 MEQ/L (136-145)
== END ==
LOC: SKLAB7 07:00
PROVIDERS: ATTEND Family Medicine
DX: L03.90 Cellulitis, unspecified (principal)

== ENCOUNTER → 2020-03-23 | Outpatient (REF) | payer MEDICARE, MEDICAID | LOC: SKLAB7 07:00 | PROVIDERS: ATTEND Family Medicine | DX: G40.89 Other seizures (principal) ==

== ENCOUNTER → 2020-04-04 | Outpatient (REF) | payer MEDICARE, MEDICAID | LOC: SKLAB7 07:00 | PROVIDERS: ATTEND Family Medicine | DX: Z86.69 Personal history of other diseases of the nervous system and sense organs (principal) ==

== ENCOUNTER → 2020-04-13 | Outpatient (REF) | LOC: SKLAB7 09:35 | PROVIDERS: ATTEND Internal Medicine | DX: Z03.818 Encounter for observation for suspected exposure to other biological agents ruled out (principal) ==

== ENCOUNTER → 2020-05-08 | Outpatient (REF) | payer MEDICARE, MEDICAID | LOC: SKLAB7 10:57 | PROVIDERS: ATTEND Family Medicine | DX: R53.83 Other fatigue (principal) ==

== ENCOUNTER → 2020-05-08 | Outpatient (REF) | payer MEDICARE, MEDICAID ==
[2020-05-08 12:24] LABS: APPEARANCE, URINE TURBID (CLEAR); BACTERIA, URINE AUTO 2+ (NEGATIVE); BILIRUBIN, URINE AUTO 1+ (NEGATIVE); BLOOD, URINE BLOOD 1+ (NEGATIVE); COLOR, URINE YELLOW (YELLOW); GLUCOSE, URINE (UA) AUTO 1+ mg/dL (NEGATIVE); KETONE, URINE AUTO NEGATIVE (NEGATIVE); LEUKOCYTE ESTERASE, URINE AUTO 2+ (NEGATIVE); NITRITE, URINE AUTO NEGATIVE (NEGATIVE); PROTEIN, URINE AUTO 1+ mg/dL (NEGATIVE); RBC, URINE AUTO 44 /HPF (0-3); SQUAMOUS EPITHELIAL CELL UR AU 111 /HPF (0-6); WBC, URINE AUTO TNTC /HPF (0-3)
[2020-05-08 13:05] LABS: HEMATOCRIT 39.8 % (36.0-47.0); HEMOGLOBIN 13.1 g/dl (12.0-15.5); MEAN CORPUSCULAR HEMOGLOBIN 29.8 pg (27.0-33.0); MEAN CORPUSCULAR HGB CONC 32.9 g/dl (32.0-36.5); MEAN CORPUSCULAR VOLUME 90.5 fl (80.0-96.0); PLATELET COUNT, AUTOMATED 319 10^3/uL (150-450); WHITE BLOOD COUNT 23.4 10^3/uL (4.0-10.0)
[2020-05-08 13:38] LABS: CREATININE FOR GFR 4.85 MG/DL (0.55-1.30); GLOMERULAR FILTRATION RATE 9.3 (>39); PHENYTOIN (DILANTIN) 24.6 UG/ML (10.0-20.0); POTASSIUM SERUM 5.1 MEQ/L (3.5-5.1)
== END ==
LOC: SKLAB7 10:53
PROVIDERS: ATTEND Family Medicine
DX: R53.83 Other fatigue (principal)